=== PATIENT | male | born 1990 | race African-American/Black ===

== ENCOUNTER 2018-12-28 19:39 | Emergency (ER) | payer OTHER ==
[~2018-12-28] VITALS: Ht 185.4 cm; Wt 77.3 kg
[~2018-12-28 19:39] MED LIST: NOCURR
[2018-12-28 19:40] VITALS: BP 141/78
[2018-12-28] MEDS ORDERED: LORazepam 2 MG/ML VIAL IVP ONE (20:15)
[2018-12-28] MEDS ORDERED: LORazepam 2 MG/ML VIAL ONE (20:17)
== END 2018-12-28 20:22 | disposition short-term general hospital (02) ==
LOC: EMS 19:41
DX: S00.212A Abrasion of left eyelid and periocular area, initial encounter (principal); S00.31XA Abrasion of nose, initial encounter; H54.62 Unqualified visual loss, left eye, normal vision right eye; Z88.6 Allergy status to analgesic agent; Z88.7 Allergy status to serum and vaccine; F17.210 Nicotine dependence, cigarettes, uncomplicated; X99.9XXA Assault by unspecified sharp object, initial encounter; Y93.89 Activity, other specified; Y92.89 Other specified places as the place of occurrence of the external cause; Y99.8 Other external cause status
CPT/HCPCS: 96374; 99291; J2060